=== PATIENT | male | born 1990 | race Caucasian/White ===

== ENCOUNTER 2017-04-28 13:52 | Emergency (ER) | payer OTHER ==
[~2017-04-28] VITALS: Ht 182.9 cm; Wt 65.8 kg
[2017-04-28 13:54] VITALS: Ht 182.9 cm; Wt 65.8 kg
[2017-04-28] MEDS ORDERED: ACETAMINOPHEN 500 MG TAB PO STA (14:14)
[2017-04-28] MEDS ORDERED: KETOROLAC TROMETHAMINE 30 MG/ML VIAL IV STA (14:14)
[2017-04-28] MEDS ORDERED: SODIUM CHLORIDE 0.9% 1000ML 2,000 ML IV STA (14:14)
--- NOTE | 2017-04-28 14:17 | EMERGENCY ROOM VISIT NOTE ---
History Report prepared by Hernesto: Jason Brice Under the Supervision of: Dr. Abdoulaye Arcos M.D. First contact with patient: 14:02 Chief Complaint: DIARRHEA History of Present Illness The patient is a 26 year old male with Hepatitis B who presents to the Emergency Room with complaints of a persistent illness that started around 11 hours ago. He says that he was seen at [facility] prior to arrival and was sent here. The patient states that he started with abdominal pain 11 hours ago, and then an hour later, started having episodes of vomiting, and 6 hours later, started having episodes of diarrhea. He adds that he has had joint aches with fevers and chills. He says that he has had a tough time drinking fluids. The patient says that he is currently feeling a bit better, and was given nausea medication at [facility]. He notes that he may be suffering from what he ate, as he previously had eaten spicy and salty food. The patient says that he has not had any known recent sick contacts or foreign travel. He states that he has had symptoms like this twice in the past. Source of History: patient Onset: 11 hours ago Position: other (global - illness) Timing: other (persistent) Associated Symptoms: + fevers, + chills, + nausea, + vomiting, + abdominal pain, + diarrhea Note: Associated symptoms: Achy joints. Review of Systems See HPI for pertinent positives & negatives. A total of 10 systems reviewed and were otherwise negative. Past Medical & Surgical Medical Problems: (1) Hepatitis B No chronic diseases present Family History No pertinent family history Social History Smoking Status: Never Smoker Housing Status: lives with roommate Occupation Status: [employer] student Current/Historical Medications Scheduled Ondasetron Odt (Zofran Odt), 4 MG SL Q6H Tenofovir Disoproxil Fumarate (Viread), 300 MG PO DAILY Allergies Coded Allergies: No Known Allergies (Unverified , 04/28/17) Physical Exam Vital Signs Date Time Temp Pulse Resp B/P (MAP) Pulse Ox O2 Delivery O2 Flow Rate FiO2 04/28/17 16:03 80 20 105/59 97 Room Air 04/28/17 15:48 37.2 87 22 108/56 97 Room Air 04/28/17 14:20 89 04/28/17 13:54 38.1 124 16 118/71 96 Room Air Physical Exam GENERAL: Patient is in no acute distress. HEENT: No acute trauma, normocephalic atraumatic, mucous membranes moist, no nasal congestion, no scleral icterus. NECK: No stridor, no adenopathy, no meningismus, trachea is midline. LUNGS: Clear to auscultation bilaterally, no wheeze, no rhonchi, breath sounds equal. HEART: Tachycardic with regular rhythm. No murmurs. ABDOMEN: Mildly diffusely tender. Soft, bowel sounds positive, no hernias, no peritonitis. EXTREMITIES: No cyanosis or edema, full range of motion of all the joints without pain or difficulty, no signs for acute trauma. NEUROLOGIC: Oriented x 3, no acute motor or sensory deficits, no focal weakness. SKIN: No rash, no jaundice, no diaphoresis. Medical Decision & Procedures Laboratory Results 04/28/17 14:22 Red Blood Count 5.29, Mean Corpuscular Volume 86.2, Mean Corpuscular Hemoglobin 30.1, Mean Corpuscular Hemoglobin Concent 34.9, Mean Platelet Volume 10.1, Neutrophils (%) (Auto) 83.7, Lymphocytes (%) (Auto) 7.1, Monocytes (%) (Auto) 9.0, Eosinophils (%) (Auto) 0.1, Basophils (%) (Auto) 0.0, Neutrophils # (Auto) 7.76, Lymphocytes # (Auto) 0.66, Monocytes # (Auto) 0.83, Eosinophils # (Auto) 0.01, Basophils # (Auto) 0.00 04/28/17 14:22 Test 04/28/17 14:22 White Blood Count 9.27 K/uL (4.8-10.8) Red Blood Count 5.29 M/uL (4.7-6.1) Hemoglobin 15.9 g/dL (14.0-18.0) Hematocrit 45.6 % (42-52) Mean Corpuscular Volume 86.2 fL (80-100) Mean Corpuscular Hemoglobin 30.1 pg (25-34) Mean Corpuscular Hemoglobin Concent 34.9 g/dl (32-36) Platelet Count 179 K/uL (130-400) Mean Platelet Volume 10.1 fL (7.4-10.4) Neutrophils (%) (Auto) 83.7 % Lymphocytes (%) (Auto) 7.1 % Monocytes (%) (Auto) 9.0 % Eosinophils (%) (Auto) 0.1 % Basophils (%) (Auto) 0.0 % Neutrophils # (Auto) 7.76 K/uL (1.4-6.5) Lymphocytes # (Auto) 0.66 K/uL (1.2-3.4) Monocytes # (Auto) 0.83 K/uL (0.11-0.59) Eosinophils # (Auto) 0.01 K/uL (0-0.5) Basophils # (Auto) 0.00 K/uL (0-0.2) RDW Standard Deviation 40.4 fL (36.4-46.3) RDW Coefficient of Variation 12.8 % (11.5-14.5) Immature Granulocyte % (Auto) 0.1 % Immature Granulocyte # (Auto) 0.01 K/uL (0.00-0.02) Anion Gap 8.0 mmol/L (3-11) Est Creatinine Clear Calc Drug Dose 93.9 ml/min Estimated GFR () 106.1 Estimated GFR (Non- 91.5 BUN/Creatinine Ratio 14.1 (10-20) Calcium Level 9.4 mg/dl (8.5-10.1) Total Bilirubin 0.8 mg/dl (0.2-1) Aspartate Amino Transf (AST/SGOT) 17 U/L (15-37) Alanine Aminotransferase (ALT/SGPT) 20 U/L (12-78) Alkaline Phosphatase 112 U/L (45-117) Total Protein 7.7 gm/dl (6.4-8.2) Albumin 4.1 gm/dl (3.4-5.0) Globulin 3.6 gm/dl (2.5-4.0) Albumin/Globulin Ratio 1.1 (0.9-2) Lipase 91 U/L (73-393) Laboratory results reviewed by me. Medications Administered Medications (Trade) Dose Ordered Sig/Neeraj Route Start Time Stop Time Status Last Admin Dose Admin Sodium Chloride 2,000 ml @ 999 mls/hr Q2H1M STAT IV 04/28/17 14:14 04/28/17 16:14 DC 04/28/17 14:26 999 MLS/HR Ketorolac Tromethamine (Toradol Inj) 30 mg NOW STAT IV 04/28/17 14:14 04/28/17 14:16 DC 04/28/17 14:32 30 MG Acetaminophen (Tylenol Tab) 1,000 mg NOW STAT PO 04/28/17 14:14 04/28/17 14:16 DC 04/28/17 14:31 1,000 MG ED Course 1407: The patient was evaluated in room A4B. A complete history and physical exam was performed. 1414: Ordered Tylenol Tab 1000 mg PO, Toradol Inj 30 mg IV, NSS 2000 ml @ 999 mls/hr IV. 1536: Reevaluated the patient and he is resting comfortably. Discussed results and discharge instructions: he verbalized understanding and agreement. The patient is ready for discharge. Medical Decision Differential diagnosis includes but is not limited to food borne illness, viral illness, dehydration, electrolyte imbalance, anemia, appendicitis or diverticulitis. There is no leukocytosis or concerning anemia. No significant electrolyte abnormality, kidney failure or hepatitis. There is no evidence for pancreatitis. On exam, the patient did not have peritonitis, he was not toxic. He was febrile and tachycardic. Patient received IV saline, IV Toradol and oral Tylenol. He feels markedly better. His heart rate has normalized. The patient is being discharged. This illness is likely viral and/or food borne. If things are worsening, if he is persisting with symptoms, he will need to come back for reassessment. He was discharged home in stable condition. Medication Reconcilliation Current Medication List: was personally reviewed by me Blood Pressure Screening Patient's blood pressure: Normal blood pressure Impression Primary Impression: Dehydration Additional Impression: Nausea vomiting and diarrhea Scribe Attestation The scribe's documentation has been prepared under my direction and personally reviewed by me in its entirety. I confirm that the note above accurately reflects all work, treatment, procedures, and medical decision making performed by me. Departure Information Dispostion Home / Self-Care Prescriptions Ondasetron Odt (ZOFRAN ODT) 4 Mg Tab 4 MG SL Q6H for Nausea, #10 TAB Prov: Abdoulaye Arcos M.D. 04/28/17 Referrals No Doctor, Assigned (PCP) Forms HOME CARE DOCUMENTATION FORM, IMPORTANT VISIT INFORMATION, WORK / SCHOOL INSTRUCTIONS Patient Instructions My [facility] Additional Instructions motrin and or tylenol for pain and fever rest bland diet----crackers, soup, gatorade, toast zofran 1 tab every 6 hours for nausea return for worsening pain, vomiting or if not improving lab testing was all ok Problem Qualifiers
[2017-04-28 14:37] LABS: COMPLETE YES; EOS % 0.1 %; HEMATOCRIT 45.6 % (42-52); IG% 0.1 %; LYMPH % 7.1 %; LYMPH ABS # 0.66 K/uL (1.2-3.4); MEAN CELL VOLUME 86.2 fL (80-100); MEAN CORPUSCULAR HEMOGLOBIN 30.1 pg (25-34); MEAN CORPUSCULAR HGB CONC 34.9 g/dl (32-36); MEAN PLATELET VOLUME 10.1 fL (7.4-10.4); NEUT % 83.7 %; PLATELET COUNT 179 K/uL (130-400); RED BLOOD COUNT 5.29 M/uL (4.7-6.1); WHITE BLOOD COUNT 9.27 K/uL (4.8-10.8)
[2017-04-28] MEDS ORDERED: [UNRECOGNIZED DRUG - CODE] PO (14:52)
[2017-04-28 14:55] LABS: BUN/CREATININE RATIO 14.1 (10-20); CALCIUM 9.4 mg/dl (8.5-10.1); CREATININE 1.1 mg/dl (0.60-1.40); POTASSIUM 3.8 mmol/L (3.5-5.1)
[2017-04-28 14:58] LABS: ALB/GLOB RATIO 1.1 (0.9-2)
[2017-04-28 15:48] VITALS: TEMP 37.2
[2017-04-28 16:03] VITALS: BP 105/59; PULSE 80; O2SAT 97
[2017-04-28] MEDS ORDERED: ONDA4TAB10 SL (16:11)
== END 2017-04-28 16:18 | disposition home or self-care (01) ==
LOC: C.EDB 13:55 → C.EDA 16:18
DX: E86.0 Dehydration (principal); R11.2 Nausea with vomiting, unspecified; R19.7 Diarrhea, unspecified; Z79.899 Other long term (current) drug therapy